=== PATIENT | male | born 1990 | race Native Hawaiian/Other Pacific Islander ===

== ENCOUNTER 2017-04-15 02:01 | Emergency (ER) | payer OTHER ==
[~2017-04-15] VITALS: Ht 175.3 cm; Wt 105.5 kg
[~2017-04-15 02:01] MED LIST: IBUP800T23 PO; LORTA5 PO
[2017-04-15 02:02] VITALS: BP 137/80; PULSE 96; RESP 18; TEMP 99; O2SAT 96
--- NOTE | 2017-04-15 03:11 | PD ---
HPI Chief Complaint: Pain: Acute or Chronic Time Seen by Provider: 03:10 Travel History International Travel<30 days: No Contact w/Intl Traveler<30days: No Traveled to known affect area: No History of Present Illness HPI 27-year-old male presents to emergency department for intermittent right arm pain that has been occurring over the last 3-4 days. He does not recall injury. Patient states Monday night he got "extremely intoxicated". He states that he woke up his right arm was painful. It seemed to resolve throughout the day but the pain intermittently comes back. Denies any weakness. Denies any alterations in sensation. States that the pain is usually exacerbated with movement but he cannot tell me exactly where the pain is. He reports no limitations in range of motion and states it is not at all times. He has no symptoms to report at this time. [facility] Past Medical History Medical History: Denies Significant Hx Diminished Hearing: No Tetanus Vaccination: < 5 Years Influenza Vaccination: No Past Surgical History Surgical History: No Previous Surgery Social History Alcohol Use: Yes (20 drinks a week ) Tobacco Use: Yes Substance Use: No Allergies-Medications (Allergen,Severity, Reaction): Coded Allergies: Cat Dander (Verified Allergy, Mild, SNEEZING, RED EYES, 11/03/13) Reported Meds & Prescriptions Reported Meds & Active Scripts Active No Active Prescriptions or Reported Medications Review of Systems Except as stated in HPI: all other systems reviewed are Neg Physical Exam Narrative GENERAL: Well-nourished, well-developed male patient in no acute distress SKIN: Focused skin assessment warm/dry. HEAD: Normocephalic. EYES: No scleral icterus. No injection or drainage. NECK: Supple, trachea midline. No JVD or lymphadenopathy. CARDIOVASCULAR: Regular rate and rhythm without murmurs, gallops, or rubs. RESPIRATORY: Breath sounds equal bilaterally. No accessory muscle use. GASTROINTESTINAL: Abdomen soft, non-tender, nondistended. MUSCULOSKELETAL: No cyanosis, or edema. No Limitations range of motion. No hyperreflexia. Sensation intact distal extremities. No deformities. Distal pulses are palpable. Cap refills within normal limits. BACK: Nontender without obvious deformity. No CVA tenderness. Data Data Last Documented VS Vital Signs Date Time Temp Pulse Resp B/P Pulse Ox O2 Delivery O2 Flow Rate FiO2 04/15/17 03:10 14 04/15/17 02:02 99.0 96 137/80 96 Room Air Orders Ketorolac Inj (Toradol Inj) (04/15/17 03:30) MDM Medical Decision Making Medical Screen Exam Complete: Yes Emergency Medical Condition: Yes Medical Record Reviewed: Yes Differential Diagnosis Neuropathy versus radiculopathy versus muscle strain versus spasm Narrative Course 27-year-old male presents to emergency department for evaluation of intermittent right arm pain. Patient appears without distress. No acute findings on examination. Patient is given a dose of Toradol. He does encouraged follow-up with primary care provider. He agrees to return immediately with any acute worsening symptoms. Diagnosis Primary Impression: Right arm pain Referrals: Primary Care Physician Patient Instructions: Arm Pain (ED), General Instructions Additional Instructions: Follow-up with a primary care provider Avoid activity that exacerbates pain Tylenol or ibuprofen as recommended package as needed for pain Return immediately to the emergency department with any acute worsening of symptoms Med/Other Pt SpecificInfo: No Change to Meds Scripts No Active Prescriptions or Reported Meds Disposition: 01 DISCHARGE HOME Condition: Stable Trish Clements Apr 15, 2017 03:10
[2017-04-15] MEDS ORDERED: KETOROLAC TROMETHAMINE 60 MG/2 ML (IM) VIAL IM ONE (03:30)
== END 2017-04-15 03:49 | disposition home or self-care (01) ==
LOC: NEPD 02:01
DX: M79.601 Pain in right arm (principal); Z72.0 Tobacco use
CPT/HCPCS: 96372; 99284; J1885